=== PATIENT | male | born 1980 | race African-American/Black ===

== ENCOUNTER 2017-09-20 02:17 | Emergency (ER) | payer MEDICARE, OTHER | END 2017-09-20 03:17 | disposition home or self-care (01) | LOC: ER 02:17 | DX: J40 Bronchitis, not specified as acute or chronic (principal); I10 Essential (primary) hypertension; G47.30 Sleep apnea, unspecified | CPT/HCPCS: 99283 ==

== ENCOUNTER 2017-09-28 21:12 | Emergency (ER) | payer MEDICARE, OTHER | END 2017-09-28 23:10 | disposition home or self-care (01) | LOC: ER 21:12 | DX: J40 Bronchitis, not specified as acute or chronic (principal); K21.9 Gastro-esophageal reflux disease without esophagitis; I10 Essential (primary) hypertension | CPT/HCPCS: 71046; 99284 ==